=== PATIENT | female | born 1995 | race Caucasian/White ===

== ENCOUNTER 2017-07-08 13:55 | Observation (INO) | payer OTHER ==
[~2017-07-08] VITALS: Ht 165.1 cm; Wt 100.2 kg
[2017-07-08 14:23] VITALS: BP 155/98
[2017-07-08] MEDS ORDERED: DESO1TAB35 PO (14:33)
[2017-07-08] MEDS ORDERED: ENOXAPARIN 60 MG/0.6 ML (LOVENOX) SYR SC SCH (14:45)
[2017-07-08 15:49] VITALS: BP 132/87
[2017-07-08] MEDS: NS IV 1000 ML 1,000 ML IV SCH (15:53)
--- NOTE | 2017-07-08 17:37 | Diagnostic Imaging Report ---
INDICATION: Pulmonary embolism. TECHNIQUE: Multiple real-time grayscale images were obtained over both lower extremities in various projections. Duplex Doppler and color Doppler images were also obtained. FINDINGS: The common femoral, femoral and popliteal veins demonstrate normal response to compression, augmentation and Valsalva. There are no abnormal lower extremity fluid collections or masses. IMPRESSION: No evidence of deep venous thrombosis in either lower extremity. Dictated by: Dictated on workstation # [id number]
[2017-07-08 18:17] LABS: BASOPHILS # (AUTO) 0.1 10^3/uL (0.0-0.1); BASOPHILS % (AUTO) 1 % (0-10); EOSINOPHILS # (AUTO) 0.1 10^3/uL (0.0-0.3); EOSINOPHILS % (AUTO) 1 % (0-10); LYMPHOCYTES # (AUTO) 2.9 X 10^3 (1.0-4.0); LYMPHOCYTES % (AUTO) 23 % (12-44); MEAN CORPUSCULAR HEMOGLOBIN 30 PG (25-34); MEAN CORPUSCULAR HGB CONC 34 G/DL (32-36); MEAN CORPUSCULAR VOLUME 90 FL (80-99); MONOCYTES # (AUTO) 0.6 X 10^3 (0.0-1.0); MONOCYTES % (AUTO) 5 % (0-12); NEUTROPHILS # (AUTO) 9.3 X 10^3 (1.8-7.8); NEUTROPHILS % (AUTO) 72 % (42-75); PLATELET COUNT 228 10^3/uL (130-400); RED BLOOD COUNT 4.63 10^6/uL (4.35-5.85); RED CELL DISTRIBUTION WIDTH 12.3 % (10.0-14.5); WHITE BLOOD COUNT 12.9 10^3/uL (4.3-11.0)
[2017-07-08 18:20] LABS: ALANINE AMINOTRANSFERASE 13 U/L (0-55); ALBUMIN 4.2 GM/DL (3.2-4.5); ANION GAP 10 MMOL/L (5-14); ASPARTATE AMINO TRANSFERASE 15 U/L (5-34); BILIRUBIN,TOTAL 0.3 MG/DL (0.1-1.0); BLOOD UREA NITROGEN 8 MG/DL (7-18); BUN/CREATININE RATIO 11; CALCIUM 9.4 MG/DL (8.5-10.1); CARBON DIOXIDE 21 MMOL/L (21-32); CHLORIDE 107 MMOL/L (98-107); GFR ESTIMATED > 60; GLUCOSE 91 MG/DL (70-105); SODIUM 138 MMOL/L (135-145); TOTAL PROTEIN 7.6 GM/DL (6.4-8.2)
[2017-07-08] MEDS ORDERED: ENOXAPARIN 60 MG/0.6 ML (LOVENOX) SYR SC ONE (19:30)
--- NOTE | 2017-07-08 19:57 | History & Physical ---
History of Present Illness History of Present Illness Reason for visit/HPI 21 yo F direct admitted for pulmonary embolism. Pt report she started oral contraceptive pills 3 months ago, denies cigarette use, and is unaware of any family history of blood clots or repeated miscarriages. Pt reports her chest discomfort, shortness of breath, and difficulty breathing with exertion have been going on for 6 days and progressively worsening. Last Wednesday she went on a trip- driving 5hours to [facility] then to [place] then . She reports Wednesday evening she started having shortness of breath- (approximately after driving for 2 hours)- she remembers running into a [employer] and thinking she was just out of shape. She denies any tobacco use or injectables. She remembers at the end of May her right upper arm had pain in a linear distribution- but this pain resolved. U/S of her legs were normal- no sign of DVT. Date of Admission Jul 08, 2017 at 13:55 Date Seen by Provider: Jul 08, 2017 Time Seen by Provider: 19:00 I consulted on this patient on 07/08/17 19:52 Attending Physician Heriberto Kelly MD Admitting Physician Leonor Sahni MD Consult Allergies and Home Medications Allergies Coded Allergies: No Allergy Information Available (Unverified , 07/08/17) Home Medications Desogestrel-Ethinyl Estradiol 1 Each Tablet, 1 TAB PO DAILY, (Reported) Past [id number] Hx Patient Social History Alcohol Use: Occasionally Uses Recreational Drug Use: No Smoking Status: Never a Smoker Physical Abuse Screen: No Sexual Abuse: No Recent Foreign Travel: No Contact w/other who traveled: No Recent Hopitalizations: No Recent Infectious Disease Expo: No Seasonal Allergies Seasonal Allergies: No Psychosocial Behavioral Health Disorders: Anxiety Blood Transfusions Adverse Reaction to a Blood Tr: No Family Medical History Family Hx: Hypertension 19 FATHER Review of Systems Review of Systems General: No Chills, No Night Sweats HEENT: Head Aches, No Visual Changes Pulmonary: Dyspnea, No Cough Cardiovascular: Chest Pain, No: Palpitations, Orthopnea Gastrointestinal: No: Nausea, Vomiting, Abdominal Pain Genitourinary: No Dysuria, No Frequency Musculoskeletal: No: neck pain, shoulder pain Neurological: Weakness Physical Exam Vital Signs Vital Sign - Last 12Hours 07/08/17 07/08/17 14:00 14:23 Temp 98.6 Pulse 122 Resp 20 B/P (MAP) 155/98 Pulse Ox 94 O2 Delivery Room Air Capillary Refill : General Appearance: WD/WN, Mild Distress HEENT: PERRL/EOMI Neck: Non Tender, Supple Respiratory: Chest Non Tender, Lungs Clear, Normal Breath Sounds, No Accessory Muscle Use, No Respiratory Distress Cardiovascular: Regular Rate, Rhythm, No Edema, Tachycardia Gastrointestinal: Normal Bowel Sounds, Non Tender, Soft Rectal: Deferred Extremity: Non Tender, No Calf Tenderness Neurologic/Psychiatric: Alert, Oriented x3, No Motor/Sensory Deficits, Normal Mood/Affect Skin: Normal Color, Warm/Dry Lymphatic: No Adenopathy Assessment/Plan Assessment/Plan Assessment/Plan 21 yo F *bilateral pulmonary embolism causing chest pain and dyspnea- right more significant than left- Provoked- oral contraceptive, obesity, sedentary car trip. lovenox 1mg/kg BID- will transition to PO upon discharge after family discussion warfarin vs xarelto 15mg bid [id number], then 20mg daily vs eliquis 10mg BID x7days, then 5mg BID -oxygen prn -CT chest- PE- no right heart strain -LE doppler- negative for DVT -factor V leiden pending *obesity- encourage weight loss through lifestyle modifications *leukocytosis- due to PE- recheck in AM Dispo: will discuss with pt and family tomorrow on plan of action. Problems: Clinical Quality Measures DVT/VTE Risk/Contraindication: Risk Factor Score Per Nursin RFS Level Per Nursing on Admit: 3=High HERIBERTO KELLY MD Jul 08, 2017 19:57
[2017-07-08 20:00] VITALS: BP_SYST 133; BP_SYST 134; BP_DIAS 79
[2017-07-09] VITALS: BP 111/57
[2017-07-09 04:00] VITALS: BP 127/63
[2017-07-09 04:56] LABS: BASOPHILS % (AUTO) 0 % (0-10); EOSINOPHILS # (AUTO) 0.2 10^3/uL (0.0-0.3); EOSINOPHILS % (AUTO) 2 % (0-10); LYMPHOCYTES % (AUTO) 36 % (12-44); MEAN CORPUSCULAR HEMOGLOBIN 31 PG (25-34); MEAN CORPUSCULAR HGB CONC 34 G/DL (32-36); MEAN CORPUSCULAR VOLUME 90 FL (80-99); MEAN PLATELET VOLUME 11.5 FL (7.4-10.4); MONOCYTES # (AUTO) 0.6 X 10^3 (0.0-1.0); MONOCYTES % (AUTO) 7 % (0-12); NEUTROPHILS # (AUTO) 4.7 X 10^3 (1.8-7.8); NEUTROPHILS % (AUTO) 55 % (42-75); PLATELET COUNT 243 10^3/uL (130-400); RED BLOOD COUNT 4.18 10^6/uL (4.35-5.85); RED CELL DISTRIBUTION WIDTH 12.2 % (10.0-14.5); WHITE BLOOD COUNT 8.5 10^3/uL (4.3-11.0)
[2017-07-09 05:18] LABS: PROTHROMBIN TIME PATIENT 13.4 SEC (12.2-14.7)
[2017-07-09] MEDS: NS IV 1000 ML 1,000 ML IV SCH ×2 (05:18→18:30)
[2017-07-09 05:53] LABS: ALANINE AMINOTRANSFERASE 13 U/L (0-55); ALBUMIN 3.9 GM/DL (3.2-4.5); ANION GAP 13 MMOL/L (5-14); ASPARTATE AMINO TRANSFERASE 12 U/L (5-34); BILIRUBIN,TOTAL 0.4 MG/DL (0.1-1.0); BLOOD UREA NITROGEN 8 MG/DL (7-18); BUN/CREATININE RATIO 12; CARBON DIOXIDE 17 MMOL/L (21-32); CHLORIDE 109 MMOL/L (98-107); CREATININE SERUM 0.67 MG/DL (0.60-1.30); GFR ESTIMATED > 60; GLUCOSE 88 MG/DL (70-105); POTASSIUM 3.6 MMOL/L (3.6-5.0); SODIUM 139 MMOL/L (135-145); TOTAL PROTEIN 6.9 GM/DL (6.4-8.2)
[2017-07-09] MEDS: ENOXAPARIN 100 MG/1 ML (LOVENOX) SYR SC SCH ×2 (06:00→18:30)
[2017-07-09] MEDS ORDERED: DESO1TAB35 PO (07:53)
[2017-07-09 07:57] VITALS: BP 113/57
--- NOTE | 2017-07-09 11:55 | Occ Therapy Progress Note ---
Therapy Progress Note Order received for OT eval and treat. Chart review completed. Pt admitted with bilateral PE. Attempted evaluation at 1045. Pt had just returned to bed after using restroom. Pt is up ad karthik in room and states she is not having any difficulties with ADLs or transfers. Pt states she at baseline and is currently able to complete ADLs and transfers independently, denies therapy needs. Pt has no questions or concerns at this time regarding ADLs or transfers. No skilled OT intervention indicated at this time. Will DC OT. 1, visit JAMES DELUNA OT OT Jul 09, 2017 11:55
[2017-07-09 12:00] VITALS: BP 125/81
[2017-07-09] MEDS: ACETAMINOPHEN 325 MG TABLET/CAPLET (TYLENOL) PO PRN ×2 (13:24→20:19)
[2017-07-09 16:00] VITALS: BP 121/64
[2017-07-09 19:48] VITALS: BP 114/66
[2017-07-10] VITALS: BP 108/56
[2017-07-10 04:00] VITALS: BP 115/69
[2017-07-10] MEDS: ENOXAPARIN 100 MG/1 ML (LOVENOX) SYR SC SCH (06:13)
[2017-07-10] MEDS: NS IV 1000 ML 1,000 ML IV SCH ×2 (06:48→07:22)
[2017-07-10] MEDS ORDERED: RIVA15TA PO (07:44)
--- NOTE | 2017-07-10 07:53 | Discharge Inst-Simple/Standard ---
Discharge Inst-Standard Discharge Medications New, Converted or Re-Newed RX: Transmitted to Pharmacy (xarelto 15mg BID x 21 days) Patient Instructions/Follow Up Plan of Care/Instructions/FU: Complete xarelto 15mg BID x 21 days then start xarelto 20mg daily- for 2 months, 1 week Follow up with Dr. Sahni's office in 1 week Gradually get back into your daily routine- walking is important Activity as Tolerated: Yes Discharge Diet: Regular Diet Return to The Hospital For: worsening chest pain respiratory difficulty other concerns ORLANDO KELLY MD Jul 10, 2017 07:53
[2017-07-10 08:02] VITALS: BP 107/72
--- NOTE | 2017-07-10 08:15 | Discharge Summary ---
Diagnosis/Chief Complaint Date of Admission Jul 08, 2017 at 13:55 Date of Discharge Jul 10, 2017 Admission Diagnosis Admission Diagnosis *bilateral pulmonary embolism causing chest pain and dyspnea- *obesity- *leukocytosis- Discharge Diagnosis *bilateral pulmonary embolism causing chest pain and dyspnea- *obesity- *leukocytosis- resolved Reason Hospital Visit 21 yo F direct admitted for pulmonary embolism. Pt report she started oral contraceptive pills 3 months ago, denies cigarette use, and is unaware of any family history of blood clots or repeated miscarriages. Pt reports her chest discomfort, shortness of breath, and difficulty breathing with exertion have been going on for 6 days and progressively worsening. Last Wednesday she went on a trip- driving 5hours to [facility] then to [place] then . She reports Wednesday evening she started having shortness of breath- (approximately after driving for 2 hours)- she remembers running into a [employer] and thinking she was just out of shape. She denies any tobacco use or injectables. She remembers at the end of May her right upper arm had pain in a linear distribution- but this pain resolved. U/S of her legs were normal- no sign of DVT. Discharge Summary Hospital Course Hospital Course 21 year old female with bilateral pulmonary embolism causing chest pain and dyspnea- right more significant than left- Provoked- due to oral contraceptive, obesity, sedentary car trip. She was started on lovenox 1mg/ kg BID- (first dose was 50mg lovenox, this was corrected for weight to 100mg on next dose). On day of discharge lovenox was discontinued and patient will start - xarelto 15mg bid [id number], then 20mg daily. She did not require oxygen. After 2 doses of lovenox patient reported improvement in her chest discomfort. Pulmonary embolism was found on CTA chest- of importance there was no right heart strain -LE doppler- negative for DVT -factor V leiden still pending *obesity- encourage weight loss through lifestyle modifications *leukocytosis- due to PE- resolved on recheck Patient will be on xarelto for 3 months minimum- Dr. Sahni to decide if she will do a hypercoagulable workup 2 weeks after anticoagulant completion. [place] will gradually get back into her daily routine. Continue ambulation. Caution with any situation of potential for a laceration. Will need medical care if a laceration occurs or head trauma. She was deemed stable for discharge on 07/10/17. Labs Laboratory Tests 8/17/17 17:49: White Blood Count 12.9H, Mean Platelet Volume 12.0H, Neutrophils # (Auto) 9.3H 07/08/17 19:40: 07/09/17 04:20: Mean Platelet Volume 11.5H, Red Blood Count 4.18L, Chloride Level 109H, Carbon Dioxide Level 17L Procedures None. Discharge Physical Examination Allergies: Coded Allergies: No Allergy Information Available (Unverified , 07/08/17) Vitals & I&Os Vital Signs Date Time Temp Pulse Resp B/P (MAP) Pulse Ox O2 Delivery O2 Flow Rate FiO2 07/10/17 09:28 07/10/17 08:48 Room Air 07/10/17 08:02 98.7 81 18 97 General Appearance: Alert, Oriented X3, Cooperative HEENT: Atraumatic Respiratory: Clear to Auscultation Cardiovascular: Regular Rate Abdominal: Normal Bowel Sounds, Soft Skin: No Rashes Neuro: Normal Gait, Normal Speech, Strength at 5/5 X4 Ext Psych/Mental Status: Mental Status NL, Mood NL Discharge Home Medications Reviewed and agree with Discharge Medication list on patient's Discharge Instruction sheet Condition at Discharge stable Instructions to Patient/Family Please see electonic discharge instructions given to patient. Clinical Quality Measures DVT/VTE Risk/Contraindication: Risk Factor Score Per Nursin RFS Level Per Nursing on Admit: 3=High ORLANDO KELLY MD Jul 10, 2017 08:15
[2017-07-10] MEDS ORDERED: RIVAROXABAN 15 MG TABLET (XARELTO) PO SCH (17:00)
[2017-07-13 13:47] LABS: FACTOR 5 (LEIDEN) MUTATION Negative (Negative)
[2017-07-13 15:44] LABS: FACTOR 5 LEIDEN INTERP See Footnote
== END 2017-07-10 07:38 | disposition home or self-care (01) ==
LOC: INTOOBSV 13:55 → 4TH 13:55 → UNDOADMOB 13:55 → 4TH 14:00 → UNDODISOB 07-10 09:28
PROVIDERS: ADMIT Family Medicine; ATTEND Family Medicine
DX: I26.99 Other pulmonary embolism without acute cor pulmonale (principal); E66.9 Obesity, unspecified; Z79.3 Long term (current) use of hormonal contraceptives
CPT/HCPCS: 36415; 80053; 80306; 81241; 83735; 85025; 85610; 93970; 99211; G0378

== ENCOUNTER → 2017-07-08 | Outpatient (CLI) | payer OTHER ==
[~2017-07-08] MED LIST: CATHETER FLUSH 10 ML SYR IV PRN; DESO1TAB35 PO; IOHEXOL 350 MG/ML 150 ML (OMNIPAQUE 350) VIAL IV ONE; NS 100 ML (IVPB) BAG IV ONE; RIVA15TA PO
[2017-07-08 12:07] LABS: MEAN PLATELET VOLUME 11.4 FL (7.4-10.4); RED BLOOD COUNT 4.75 10^6/uL (4.35-5.85); RED CELL DISTRIBUTION WIDTH 12.4 % (10.0-14.5); WHITE BLOOD COUNT 10.4 10^3/uL (4.3-11.0)
[2017-07-08 12:32] LABS: ALANINE AMINOTRANSFERASE 15 U/L (0-55); ALBUMIN 4.5 GM/DL (3.2-4.5); ANION GAP 13 MMOL/L (5-14); ASPARTATE AMINO TRANSFERASE 13 U/L (5-34); BILIRUBIN,TOTAL 0.4 MG/DL (0.1-1.0); BLOOD UREA NITROGEN 8 MG/DL (7-18); BUN/CREATININE RATIO 11; CALCIUM 9.7 MG/DL (8.5-10.1); CARBON DIOXIDE 19 MMOL/L (21-32); CHLORIDE 109 MMOL/L (98-107); CREATININE SERUM 0.73 MG/DL (0.60-1.30); GFR ESTIMATED > 60; GLUCOSE 85 MG/DL (70-105); POTASSIUM 3.8 MMOL/L (3.6-5.0); SODIUM 141 MMOL/L (135-145); TOTAL PROTEIN 8.1 GM/DL (6.4-8.2)
[2017-07-08 12:52] LABS: THYROID STIMULATING HORMONE 1.28 UIU/ML (0.35-4.94)
--- NOTE | 2017-07-08 13:44 | Diagnostic Imaging Report ---
PROCEDURE: CT angiography of the chest with contrast. TECHNIQUE: Multiple contiguous axial images were obtained through the chest after uneventful bolus administration of intravenous contrast. Reconstructed CTA MIP acquisitions were also performed. INDICATION: One week-history of shortness of breath. FINDINGS: There is no intracardiac chamber mass or thrombus. The pulmonary outflow tract patent and the undivided main pulmonary artery as well as left and right main pulmonary arteries were all patent. There is however substantial clot burden involving the lobar branches of the right middle and lower lobes and a small amount of clot within the right upper lobar branch. Less severe clot burden in the left lower lobe and lingular segmental branches noted. There is no displacement of the intraventricular septum. The right heart was not enlarged. No abnormal venous reflux of contrast. No findings to suggest elevated right heart pressures. No saddle embolus. There were no findings of pulmonary hemorrhage or lung infarct. The lungs are free of infiltrate. There is no mass. IMPRESSION: Right greater than left bilateral pulmonary arterial emboli without saddle embolus or secondary features of right heart strain. No evidence for lung infarct or hemorrhage. No pleural pathology. Results have been discussed by phone with the ordering clinician at the time of this dictation. Dictated by: Dictated on workstation # [id number]
== END ==
LOC: RAD 11:42
PROVIDERS: ATTEND Nurse Practitioner Family
DX: I26.99 Other pulmonary embolism without acute cor pulmonale (principal)
CPT/HCPCS: 36415; 71275; 80053; 84443; 85027; 85379

== ENCOUNTER 2018-03-14 14:52 | Outpatient (RCR) | payer OTHER ==
[~2018-03-14 14:52] MED LIST changes: -CATHETER FLUSH 10 ML SYR IV PRN; -IOHEXOL 350 MG/ML 150 ML (OMNIPAQUE 350) VIAL IV ONE; -NS 100 ML (IVPB) BAG IV ONE
== END 2018-04-17 | disposition home or self-care (01) ==
LOC: ONC 14:52
PROVIDERS: ATTEND Internal Medicine Hematology & Oncology
DX: Z09 Encounter for follow-up examination after completed treatment for conditions other than malignant neoplasm (principal); Z86.711 Personal history of pulmonary embolism; E66.9 Obesity, unspecified; Z68.39 Body mass index [BMI] 39.0-39.9, adult
CPT/HCPCS: 36415; 81240; 85300; 85303; 85306; 85610; 85613; 85705; 85730; 86146; 86147; 99213; 99214